=== PATIENT | female | born 1950 | race Caucasian/White ===

== ENCOUNTER → 2017-10-02 | Outpatient (CLI) | payer MEDICARE ==
[2017-10-02 08:33] LABS: PLATELET COUNT, AUTOMATED 268 K/uL (150-450)
[2017-10-02 08:51] LABS: LDL CHOLESTEROL 122 mg/dl
== END ==
LOC: LAB 08:17
PROVIDERS: ATTEND Nurse Practitioner Psychiatric/Mental Health
DX: I10 Essential (primary) hypertension (principal); F39 Unspecified mood [affective] disorder; Z72.820 Sleep deprivation
CPT/HCPCS: 36415; 82040; 82247; 82310; 82374; 82435; 82465; 82565; 82947; 83718; 84075; 84132; 84155; 84295; 84443; 84450; 84460; 84478; 84520; 85025

== ENCOUNTER → 2017-10-14 | Outpatient (CLI) | payer MEDICARE ==
--- NOTE | 2017-10-14 13:42 | RADIOLOGY IMAGING REPORT ---
FACILITY: [facility] PATIENT NAME: Nixon Chu : 1950 MR: [id number] V: [id number] EXAM DATE: ORDERING PHYSICIAN: BLANCA WATKINS TECHNOLOGIST: Location: [facility] - [place], [place] Patient: Nixon Chu : 1950 Visit/Account:[id number] Date of Sevice: 10/14/2017 DEXA Scan Clinical history: Ovarian failure. Comparison: None available. LUMBAR SPINE: The bone mineral density (BMD) measured from L1-L4 correlates with a Z-score 0.1 and a T-score of -1. 5 which is osteopenia as defined by the World Health Organization. The corresponding risk of fractur e in the lumbar spine is 3 times increased compared with a young adult reference population. HIP: Bone mineral density (BMD) measured in the Left total hip region correlates with a Z-score 0.4 and a T-score of -0.8 which is Normal as defined by the World Health Organization. The corresponding risk of fracture in the hip is 1-2 times increased compared with a young adult reference population. T s core left femoral neck -1.4 Bone mineral density (BMD) measured in the Femoral Neck region measures 0.841 g/cm2. Impression: 1. Lumbar spine: Osteopenia. 2. Left Hip: Normal. 3. Femoral Neck: Bone Mineral Density is 0.841 g/cm2 The next DEXA scan of this patient should include the following sites: L1-L4 and the left hip. FRAX? WHO Fracture Risk Assessment Tool link: <http://www.shef.ac.uk/FRAX/tool.jsp?locationValue=9> PLEASE NOTE: 1) The World Health Organization defines low BMD as follows: T-score Normal > -1 Osteopenia < -1 and > -2.5 Osteoporosis < -2.5 without fractures Established osteoporosis < -2.5 with fractures 2) In general, you may wish to consider: Diagnosis Treatment Follow-up DEXA Normal BMD Prevention 2-3 years Osteopenia Prevention/therapy 1-2 years Osteoporosis Therapy Yearly 3) Fracture risk estimated from the T-score is more accurate for vertebral fractures (often spontane ous) than for hip fractures. Report Dictated By: Angelia Lau MD at 10/14/2017 1:37 PM Report E-Signed By: Angelia Lau MD at 10/14/2017 1:39 PM WSN:[email or web address]
--- NOTE | 2017-10-15 11:09 | RADIOLOGY IMAGING REPORT ---
FACILITY: [facility] PATIENT NAME: SP LAU : [id number] MR: [id number] V: [id number] EXAM DATE: [id number] ORDERING PHYSICIAN: BLANCA WATKINS TECHNOLOGIST: Kathe Bryan PROCEDURE:BILATERAL DIGITAL SCREENING MAMMOGRAM WITH CAD ASSISTED INTERPRETATION & 3D TOMOSYNTHESIS COMPARISON:None. By history of the patients prior mammograms are no longer available. INDICATIONS:SCREENING FINDINGS: There are bilateral sub glandular breast implants in place. A small to moderate amount of fibroglandular tissue is seen anterior to the implants. There is a small lobule of silicone just medial to the implant on the Left CC view. There are scattered small round calcifications seen throughout the breasts. DIAGNOSTIC CATEGORY 3--PROBABLY BENIGN FINDING. RECOMMENDATIONS: SIX MONTH FOLLOW-UP DIAGNOSTIC MAMMOGRAM: BILATERAL BREASTS. IMPRESSION: BIRADS 3: Probably benign finding A 6 month follow-up bilateral mammogram is recommended to evaluate the scattered small round calcifications throughout the breasts sense there are no prior mammograms available for comparison. Dictated by: Angelia Lau M.D. on 10/14/2017 at 17:15 Transcribed by: VASYL on 10/15/2017 at 10:59 Approved by: Angelia Lau M.D. on 10/15/2017 at 11:08 [facility]
== END ==
LOC: MAMO 01:25
PROVIDERS: ATTEND Nurse Practitioner Psychiatric/Mental Health
DX: Z13.820 Encounter for screening for osteoporosis (principal); Z12.31 Encounter for screening mammogram for malignant neoplasm of breast; M85.88 Other specified disorders of bone density and structure, other site; Z98.82 Breast implant status; R92.1 Mammographic calcification found on diagnostic imaging of breast
CPT/HCPCS: 77063; 77067; 77080

== ENCOUNTER → 2018-04-08 | Outpatient (CLI) | payer MEDICARE | LOC: LAB 13:48 | PROVIDERS: ATTEND Nurse Practitioner Psychiatric/Mental Health | DX: N39.0 Urinary tract infection, site not specified (principal) | CPT/HCPCS: 87088 ==

== ENCOUNTER → 2018-05-20 | Outpatient (CLI) | payer MEDICARE ==
--- NOTE | 2018-05-20 16:07 | RADIOLOGY IMAGING REPORT ---
FACILITY: [facility] - [place] PATIENT NAME: SP LAU : [id number] MR: [id number] V: [id number] EXAM DATE: [id number] ORDERING PHYSICIAN: BLANCA WATKINS TECHNOLOGIST: Kathe Bryan PROCEDURE:BILATERAL DIAGNOSTIC DIGITAL MAMMOGRAM WITH CAD ASSISTED INTERPRETATION & 3D TOMOSYNTHESIS COMPARISON:None. INDICATIONS:6 MO F/U, IMPLANTS FINDINGS: Scattered fibroglandular densities are present in both breasts. Several benign appearing calcifications are scattered in both breasts, unchanged compared to 10/14/17. DIAGNOSTIC CATEGORY 2--BENIGN FINDING. RECOMMENDATIONS: RETURN TO SCREENING MAMMOGROPHY IN SEPTEMBER 2018. IMPRESSION: BIRADS 2: Benign finding. Dictated by: Seven Jenkins M.D. on 05/20/2018 at 10:27 Transcribed by: VASYL on 05/20/2018 at 10:57 Approved by: Seven Jenkins M.D. on 05/20/2018 at 16:06 [facility]
== END ==
LOC: MAMO 05-07 00:39
PROVIDERS: ATTEND Nurse Practitioner Psychiatric/Mental Health
DX: R92.8 Other abnormal and inconclusive findings on diagnostic imaging of breast (principal)
CPT/HCPCS: 77062; 77066